=== PATIENT | female | born 2000 | race Caucasian/White ===

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

== ENCOUNTER 2018-01-28 18:33 | Emergency (ER) | payer OTHER ==
[2018-01-28] MEDS ORDERED: Tetracaine 0.5% OPHTH SOLN/PF 4 ML BOT ONE (18:49)
== END 2018-01-28 19:10 | disposition home or self-care (01) ==
LOC: MADERS 18:33
DX: H10.9 Unspecified conjunctivitis (principal); I10 Essential (primary) hypertension; Z79.84 Long term (current) use of oral hypoglycemic drugs
CPT/HCPCS: 99282

== ENCOUNTER 2018-10-30 07:50 | Emergency (ER) | payer OTHER ==
[2018-10-30] MEDS ORDERED: Ibuprofen 800 MG TAB ONE (08:39)
== END 2018-10-30 08:42 | disposition home or self-care (01) ==
LOC: MADERS 07:50
DX: H66.91 Otitis media, unspecified, right ear (principal); I10 Essential (primary) hypertension; Z79.84 Long term (current) use of oral hypoglycemic drugs; Z79.899 Other long term (current) drug therapy
CPT/HCPCS: 99282

== ENCOUNTER 2019-02-08 07:52 | Emergency (ER) | payer OTHER | END 2019-02-08 08:23 | disposition home or self-care (01) | LOC: MADERS 07:52 | DX: O20.0 Threatened abortion (principal); Z79.84 Long term (current) use of oral hypoglycemic drugs; Z3A.09 9 weeks gestation of pregnancy | CPT/HCPCS: 99283 ==

== ENCOUNTER 2019-03-25 23:55 | Emergency (ER) | payer OTHER ==
[2019-03-26] MEDS ORDERED: Acetaminophen 500 MG TAB ONE (00:29)
== END 2019-03-26 00:38 | disposition home or self-care (01) ==
LOC: MADERS 23:55
DX: O99.612 Diseases of the digestive system complicating pregnancy, second trimester (principal); K21.9 Gastro-esophageal reflux disease without esophagitis; Z3A.16 16 weeks gestation of pregnancy
CPT/HCPCS: 99283

== ENCOUNTER 2020-06-28 18:36 | Emergency (ER) | payer OTHER ==
[~2020-06-28 18:36] MED LIST changes: +Iopamidol 370 76% 100 ML VIAL ONE; -Sodium Chloride 0.9% 1,000 ML BAG ONE; -Sodium Chloride 0.9% 100 ML BAG ONE
[2020-06-28 19:18] LABS: Bilirubin Negative (Negative); Blood, Urine Negative (Negative); Clarity Slightly Cloudy (Clear); Glucose, Urine (Dipstick) Negative (Negative); Ketone, Urine Negative (Negative); Leukocyte Negative (Negative); Nitrite Negative (Negative); Protein, Urine (Dipstick) Trace mg/dL (Neg-Trace); Urobilinogen 0.2 mg/dL (Less than 2); pH, Urine 6.5 (5.0-9.0)
[2020-06-28] MEDS ORDERED: Ketorolac Tromethamine 30 MG/ML VIAL ONE (19:21)
[2020-06-28 19:24] LABS: Specific Gravity, Urine 1.028 (1.002-1.036)
[2020-06-28 19:27] LABS: #Basophils 0.1 thou/uL (0.0-0.2); #Eosinphils 0.1 thou/uL (0.0-0.7); #Lymphocytes 3.2 thou/uL (1.20-3.40); #Monocytes 0.5 thou/uL (0.11-0.59); #Neutrophils 4.6 thou/uL (1.40-6.50); %Basophils 1.1 % (0.0-1.0); %Eosinophils 1.4 % (0.0-10.0); %Lymphocytes 38.1 % (21.0-51.0); %Monocytes 5.2 % (0.0-10.0); %Neutrophils 54.2 % (42.0-75.0); Mean Corpuscular HGB CONC 30.8 g/dL (32.0-36.0); Mean Corpuscular Hemoglobin 25.2 pg (27.0-31.0); Mean Corpuscular Volume 81.9 fL (78.0-98.0); Mean Platelet Volume 8.2 fL (7.4-10.4); Platelet Count 357 thou/uL (130-400); RBC Distribution Width 13.6 % (11.5-14.5); Red Blood Cell (RBC) Count 5.58 mill/uL (4.20-5.40); White Blood Cell (WBC) Count 8.5 thou/uL (4.8-10.8)
[2020-06-28 19:34] LABS: BHCG - Serum Negative (NEGATIVE); Pregs Control Background? CLEAR/WHITE (CLR/WHITE); Pregs Control Bar Appear? YES (CONTROL BAR)
[2020-06-28 19:41] LABS: ALT (SGPT) 46 U/L (8-55); AST (SGOT) 26 U/L (5-34); Albumin 4.4 g/dL (3.5-5.0); Alkaline Phosphatase 113 U/L (40-110); Anion Gap 14 mmol/L (10-20); BUN (Urea Nitrogen) 10 mg/dL (7.0-18.7); Bilirubin, Total 0.3 mg/dL (0.2-1.2); Calc. Creatinine Clearance 0 mL/min (70-130); Carbon Dioxide 22 mmol/L (22-29); Chloride 108 mmol/L (98-107); Estimated GFR-MDRD Greater than 90; Globulin 2.9 g/dL (2.4-3.5); Glucose 91 mg/dL (70-105); Potassium 4.1 mmol/L (3.5-5.1); Protein, Total 7.3 g/dL (6.0-8.3); Sodium 140 mmol/L (136-145)
--- NOTE | 2020-06-28 20:50 | CT ---
CT ABDOMEN AND PELVIS WITH IV CONTRAST: 06/28/20 HISTORY: Right lower quadrant abdominal pain. COMPARISON: 02/08/17. FINDINGS: The lung bases are clear. The liver, spleen, pancreas, adrenal glands and left kidney are normal. No calcified gallstones are seen. There is a 3 mm nonobstructing right renal calculus. The small bowel loops are not abnormally dilated. A normal appearing appendix is seen. Prominent mesenteric lymph nod es particularly in the ileocecal chain is stable. Uterus and ovaries are present. A 3.4 cm right adne xal cystic mass likely ovarian is present. No free air, free fluid or lymphadenopathy is seen in the abdomen or pelvis. Bony structures are unremarkable. IMPRESSION: 1. No evidence of appendicitis. 2. Stable mesenteric/ileocecal lymph nodes since 02/08/17. 3. Nonobstructing 3 mm right renal calculus. 4. A 3.4 cm right adnexal cystic mass, likely ovarian. POS: [facility]
== END 2020-06-28 20:41 | disposition home or self-care (01) ==
LOC: MADERS 18:36
DX: N83.201 Unspecified ovarian cyst, right side (principal); K90.0 Celiac disease
CPT/HCPCS: 74177; 80053; 81003; 84703; 85025; 96374; J1885; Q9967

== ENCOUNTER 2020-12-05 10:39 | Emergency (ER) | payer OTHER ==
--- NOTE | 2020-12-05 11:26 | RAD ---
EXAM: 4 views of the left knee HISTORY: Knee pain after fall COMPARISON: None FINDINGS: No knee effusion is seen. There is no evidence of acute fracture or dislocation. No signifi cant degenerative changes are seen. No soft tissue swelling is present. IMPRESSION: No evidence of acute osseous abnormality.
[2020-12-05] MEDS ORDERED: HYDROcodone/Acetaminophen 5/325 mg Tablet ONE (11:45)
[2020-12-05] MEDS ORDERED: Ibuprofen 800 MG TAB ONE (11:45)
== END 2020-12-05 12:05 | disposition home or self-care (01) ==
LOC: MADERS 10:39
DX: S83.92XA Sprain of unspecified site of left knee, initial encounter (principal); K90.0 Celiac disease; X50.9XXA Other and unspecified overexertion or strenuous movements or postures, initial encounter

== ENCOUNTER 2021-02-06 17:25 | Emergency (ER) | payer OTHER | END 2021-02-06 19:16 | disposition home or self-care (01) | LOC: MADERS 17:25 | DX: S90.31XA Contusion of right foot, initial encounter (principal); K90.0 Celiac disease; Z79.899 Other long term (current) drug therapy; W22.8XXA Striking against or struck by other objects, initial encounter ==

== ENCOUNTER 2021-08-27 12:06 | Emergency (ER) | payer OTHER ==
[2021-08-27] MEDS ORDERED: Bacitracin 1 PK ONE (12:34)
[2021-08-27] MEDS ORDERED: Ibuprofen 800 MG TAB ONE (12:34)
== END 2021-08-27 12:38 | disposition home or self-care (01) ==
LOC: MADERS 12:06
DX: T65.891A Toxic effect of other specified substances, accidental (unintentional), initial encounter (principal); T20.42XA Corrosion of unspecified degree of lip(s), initial encounter; K90.0 Celiac disease
CPT/HCPCS: 99283

== ENCOUNTER 2021-11-27 16:48 | Emergency (ER) | payer OTHER ==
[2021-11-27] MEDS ORDERED: Meclizine HCl 25 MG TAB ONE (20:15)
[2021-11-27 20:20] LABS: Bilirubin Negative (Negative); Blood, Urine Large (Negative); Glucose, Urine (Dipstick) Negative (Negative); Ketone, Urine Negative (Negative); Leukocyte Trace (Negative); Nitrite Negative (Negative); Pregnancy Test - Urine (BHCG) Negative (Negative); Pregu Control Background? CLEAR/WHITE (CLR/WHITE); Pregu Control Bar Appear? YES (CONTROL BAR); Protein, Urine (Dipstick) Negative (Neg-Trace); Specific Gravity 1.015 (1.002-1.036); Specific Gravity, Urine 1.015 (1.005-1.030); Urobilinogen 0.2 mg/dL (Less than 2)
[2021-11-27 20:25] LABS: Bacteria/HPF 1+ HPF (None Seen); Clarity Hazy (Clear); RBC/HPF 0-3 HPF (0-3)
== END 2021-11-27 21:38 | disposition home or self-care (01) ==
LOC: MADERS 16:48
DX: R42 Dizziness and giddiness (principal); R56.9 Unspecified convulsions; Z79.899 Other long term (current) drug therapy
CPT/HCPCS: 81003; 81015; 81025; 93005

== ENCOUNTER 2022-10-23 09:05 | Outpatient (CLI) | payer OTHER | END 2022-10-23 09:06 | disposition home or self-care (01) | LOC: MADLAB 09:05 | PROVIDERS: ATTEND Family Medicine | DX: M25.561 Pain in right knee (principal) ==

== ENCOUNTER 2023-02-16 18:26 | Emergency (ER) | payer OTHER ==
[2023-02-16 19:12] LABS: Pregnancy Test - Urine (BHCG) Negative (Negative); Pregu Control Background? CLEAR/WHITE (CLR/WHITE); Pregu Control Bar Appear? YES (CONTROL BAR); Specific Gravity 1.032 (1.002-1.036)
[2023-02-16] MEDS ORDERED: Ondansetron ODT 4 MG TAB ONE (19:18)
[2023-02-16] MEDS ORDERED: Acetaminophen 500 MG TAB ONE (19:18)
== END 2023-02-16 20:50 | disposition home or self-care (01) ==
LOC: MADERS 18:26
DX: S06.0XAA Concussion with loss of consciousness status unknown, initial encounter (principal); W50.1XXA Accidental kick by another person, initial encounter
CPT/HCPCS: 70450; 81025; Q0162

== ENCOUNTER 2023-02-24 12:38 | Emergency (ER) | payer OTHER ==
[2023-02-24] MEDS ORDERED: Sodium Chloride 0.9% 1,000 ML ONE (13:40)
[2023-02-24 14:09] LABS: #Basophils 0.1 thou/uL (0.0-0.2); #Lymphocytes 1.9 thou/uL (1.20-3.40); #Monocytes 0.4 thou/uL (0.11-0.59); #Neutrophils 3.8 thou/uL (1.40-6.50); %Basophils 0.9 % (0.0-1.0); %Eosinophils 0.8 % (0.0-10.0); %Lymphocytes 30.2 % (21.0-51.0); %Monocytes 6.1 % (0.0-10.0); Hemoglobin 13.3 g/dL (12.0-16.0); Mean Corpuscular HGB CONC 32.3 g/dL (32.0-36.0); Mean Corpuscular Volume 86.5 fl (78.0-98.0); Mean Platelet Volume 9.1 fL (7.4-10.4); Platelet Count 262 10x3/uL (130-400); RBC Distribution Width 12.2 % (11.5-14.5); Red Blood Cell (RBC) Count 4.76 mill/uL (4.20-5.40); White Blood Cell (WBC) Count 6.2 10x3/uL (4.8-10.8)
[2023-02-24 14:20] LABS: BHCG - Serum Negative (NEGATIVE); Pregs Control Background? CLEAR/WHITE (CLR/WHITE); Pregs Control Bar Appear? YES (CONTROL BAR)
[2023-02-24 14:24] LABS: ALT (SGPT) 31 U/L (8-55); AST (SGOT) 20 U/L (5-34); Albumin 3.9 g/dL (3.5-5.0); Alkaline Phosphatase 77 U/L (40-110); Anion Gap 12 mmol/L (10-20); BUN (Urea Nitrogen) 9 mg/dL (7.0-18.7); Bilirubin, Total 0.3 mg/dL (0.2-1.2); Calc. Creatinine Clearance 0 mL/min (70-130); Calcium 9.2 mg/dL (7.8-10.44); Carbon Dioxide 21 mmol/L (22-29); Chloride 110 mmol/L (98-107); Estimated GFR 122; Globulin 2.8 g/dL (2.4-3.5); Glucose 121 mg/dL (70-105); Magnesium 2.1 mg/dL (1.6-2.6); Potassium 3.8 mmol/L (3.5-5.1); Protein, Total 6.7 g/dL (6.0-8.3); Sodium 139 mmol/L (136-145)
== END 2023-02-24 15:20 | disposition home or self-care (01) ==
LOC: MADERS 12:38
DX: S06.0XAA Concussion with loss of consciousness status unknown, initial encounter (principal); X58.XXXA Exposure to other specified factors, initial encounter
CPT/HCPCS: 80053; 83735; 84703; 85025; 96360; J7050